=== PATIENT | male | born 1955 | race Caucasian/White ===

== ENCOUNTER 2016-12-01 16:08 | Emergency (ER) | payer MEDICAID ==
[~2016-12-01] VITALS: Ht 177.8 cm; Wt 96.1 kg
[~2016-12-01 16:08] MED LIST: CYCL-259 PO; HYDR-3307 PO; HYDR25TA11 PO
[2016-12-01 16:17] VITALS: BP 114/77
[2016-12-01] MEDS ORDERED: ALBUTEROL/IPRATROPIUM 2.5MG/0.5MG, 3 ML ONE (16:58)
[2016-12-01] MEDS ORDERED: ALBUTEROL/IPRATROPIUM 2.5MG/0.5MG, 3 ML NPPB ONE (17:00)
== END 2016-12-01 17:53 | disposition home or self-care (01) ==
LOC: EDBD 17:43 → ED 17:43
DX: J44.1 Chronic obstructive pulmonary disease with (acute) exacerbation (principal); J45.909 Unspecified asthma, uncomplicated; I10 Essential (primary) hypertension; M06.9 Rheumatoid arthritis, unspecified; G89.29 Other chronic pain; Z87.891 Personal history of nicotine dependence; Z90.49 Acquired absence of other specified parts of digestive tract; Z91.040 Latex allergy status
CPT/HCPCS: 71010; 94640; 99283; J7512; J7620

== ENCOUNTER 2016-12-07 00:03 | Emergency (ER) | payer MEDICAID ==
[~2016-12-07] VITALS: Ht 177.8 cm; Wt 98.2 kg
[2016-12-07] MEDS ORDERED: ALBUTEROL/IPRATROPIUM 2.5MG/0.5MG, 3 ML ONE (01:35)
[2016-12-07] MEDS: ALBUTEROL/IPRATROPIUM 2.5MG/0.5MG, 3 ML NPPB SCH ×2 (01:44→01:46)
[2016-12-07 02:06] VITALS: BP 114/56
== END 2016-12-07 02:09 | disposition home or self-care (01) ==
LOC: ED 02:03
DX: J45.41 Moderate persistent asthma with (acute) exacerbation (principal); M54.9 Dorsalgia, unspecified; G89.29 Other chronic pain; J44.9 Chronic obstructive pulmonary disease, unspecified; M19.90 Unspecified osteoarthritis, unspecified site; I10 Essential (primary) hypertension; M06.9 Rheumatoid arthritis, unspecified; Z87.891 Personal history of nicotine dependence
CPT/HCPCS: 71020; 93005; 94640; 99284; J7512; J7620

== ENCOUNTER 2020-05-11 04:17 | Emergency (ER) | payer MEDICAID ==
[~2020-05-11] VITALS: Ht 177.8 cm; Wt 114.0 kg
[~2020-05-11 04:17] MED LIST changes: +HYDR-3246 PO; -HYDR-3307 PO; +HYDR-826 PO; -HYDR25TA11 PO
--- NOTE | 2020-05-11 04:30 | NUR ---
Patient presents to ER c/o bilat leg/ankle swelling and pain. Patient states his legs have been swollen for the past month and have become worse. Patient is in NAD. REspirations even and unlabored. Edema noted to bilat legs and ankles.
[2020-05-11 05:18] VITALS: BP 124/68
[2020-05-11 05:18] LABS: BASOPHILS # (AUTO) 0.07 x10^3/uL (0-0.1); BASOPHILS % (AUTO) 1 % (0-1); EOSINOPHILS # (AUTO) 0.25 x10^3/uL (0-0.4); EOSINOPHILS % (AUTO) 3 % (1-7); LYMPHOCYTES # (AUTO) 1.44 x10^3/uL (1-3.4); LYMPHOCYTES % (AUTO) 20 % (22-44); MD NO; MEAN CORPUSCULAR HEMOGLOBIN 21.6 pg (27.5-34.5); MEAN CORPUSCULAR HGB CONC 30.6 g/dL (33.2-36.2); MEAN CORPUSCULAR VOLUME 70.7 fL (81-97); MEAN PLATELET VOLUME 8.2 fL (7.4-10.4); MONOCYTES # (AUTO) 0.76 x10^3/uL (0.2-0.8); MONOCYTES % (AUTO) 11 % (2-9); NEUTROPHILS # (AUTO) 4.69 x10^3/uL (1.8-6.8); NEUTROPHILS % (AUTO) 65 % (42-75); PLATELET COUNT 276 x10^3/uL (130-400); RED BLOOD COUNT 4.73 x10^6/uL (4.38-5.82); RED CELL DISTRIBUTION WIDTH 18.1 % (9.4-14.8)
[2020-05-11 05:32] LABS: ALBUMIN 3.5 g/dL (3.4-5.0); ANION GAP 6 mmol/L (5-15); CALCIUM 8.8 mg/dL (8.5-10.1); CHLORIDE 107 mmol/L (98-107); CREATININE 0.98 mg/dL (0.7-1.3)
== END 2020-05-11 06:47 | disposition home or self-care (01) ==
LOC: ED 05:04
DX: I87.2 Venous insufficiency (chronic) (peripheral) (principal); M17.11 Unilateral primary osteoarthritis, right knee; R60.0 Localized edema; J44.9 Chronic obstructive pulmonary disease, unspecified; I10 Essential (primary) hypertension; M19.90 Unspecified osteoarthritis, unspecified site; G89.29 Other chronic pain
CPT/HCPCS: 36415; 80048; 82040; 83880; 85025; 93970; 99284

== ENCOUNTER 2020-10-15 18:37 | Emergency (ER) | payer MEDICAID ==
[~2020-10-15] VITALS: Ht 177.8 cm; Wt 111.8 kg
[~2020-10-15 18:37] MED LIST changes: -HYDR-3246 PO; +HYDR-3248 PO
--- NOTE | 2020-10-15 18:56 | NUR ---
Note jose in [facility] - 10/15/20 at 1857 by LUNA ecosystem ecology professor note: Pt to room from [facility]anti.
--- NOTE | 2020-10-15 19:00 | NUR ---
3 RNs at bedside, 18 gauge IV started in left hand. Pt hooked up to cardiac and oxygen monitor. Pt denies chest pain or cardiac hx.
--- NOTE | 2020-10-15 19:35 | NUR ---
Provider at bedside.
--- NOTE | 2020-10-15 19:36 | NUR ---
Pt denies chest pain but reports today he started feeling heart palpitations and left arm pain. Pt reports they have claustrophobia that started a couple months ago, reports usually the palpitaions and feelings of claustrophobia go away after walking outside or deep breathing but were not going away today.
--- NOTE | 2020-10-15 19:47 | NUR ---
ice chips provided with approval
--- NOTE | 2020-10-15 20:17 | NUR ---
Lab at bedside.
[2020-10-15 20:43] LABS: BASOPHILS % (AUTO) 1 % (0-1); EOSINOPHILS % (AUTO) 6 % (1-7); LYMPHOCYTES % (AUTO) 19 % (22-44); MEAN CORPUSCULAR HEMOGLOBIN 22.2 pg (27.5-34.5); MEAN CORPUSCULAR HGB CONC 31.9 g/dL (33.2-36.2); MEAN PLATELET VOLUME 7.7 fL (7.4-10.4); MONOCYTES % (AUTO) 12 % (2-9); NEUTROPHILS % (AUTO) 63 % (42-75); PLATELET COUNT 256 x10^3/uL (130-400); RED BLOOD COUNT 4.97 x10^6/uL (4.38-5.82); RED CELL DISTRIBUTION WIDTH 16.9 % (9.4-14.8)
--- NOTE | 2020-10-15 20:45 | NUR ---
Pt ambulating to bathroom- using personal cane. Steady with cane.
[2020-10-15 20:48] LABS: MD NO
[2020-10-15 20:52] LABS: ALANINE AMINOTRANSFERASE 30 U/L (12-78); ALBUMIN 3.6 g/dL (3.4-5.0); ANION GAP 7 mmol/L (5-15); CALCIUM 9.3 mg/dL (8.5-10.1); CHLORIDE 107 mmol/L (98-107)
[2020-10-15 20:56] LABS: ALKALINE PHOSPHATASE 92 U/L (45-117); BILIRUBIN,TOTAL 0.4 mg/dL (0.2-1.0); TOTAL PROTEIN 7.3 g/dL (6.4-8.2); TROPONIN I < 0.015 ng/mL (0.000-0.045)
--- NOTE | 2020-10-15 21:32 | NUR ---
Pt to CT
--- NOTE | 2020-10-15 21:47 | NUR ---
Pt unable to tolerate CT- MD reports they will order Ativan.
[2020-10-15] MEDS ORDERED: LORazepam 2 MG/ML, 1ML ONE (21:52)
--- NOTE | 2020-10-15 21:56 | NUR ---
1 mg Ativan given
--- NOTE | 2020-10-15 21:57 | NUR ---
Called CT to inform pt just given Ativan, CT reports they will come get pt now.
--- NOTE | 2020-10-15 21:59 | NUR ---
Pt to CT
[2020-10-15] MEDS ORDERED: OMNIPAQUE 350 MG/ML, 100ML BOTTLE ONE (22:00)
[2020-10-15] MEDS ORDERED: LORazepam 2 MG/ML, 1ML IVPush ONE (22:00)
--- NOTE | 2020-10-15 22:17 | NUR ---
BREAK RN: PT RESTING COMFORTABLY ON GURNEY, ABLE TO DOZE OFF. O2 NOTED TO BE 87% ON ROOM AIR WHILE SLEEPING. PT PLACED ON 2L SUPPLEMENTAL O2 VIA NASAL CANNULA. TOLERATING WELL, O2 AT 96% AT THIS TIME. PT DENIES ANY ADDITIONAL NEEDS AT THIS TIME. CALL LIGHT AND PERSONAL BELONGINGS WITHIN REACH. KIESHA GRANT.
[2020-10-15 23:15] VITALS: BP 119/77
--- NOTE | 2020-10-15 23:23 | NUR ---
IV removed, catheter intact, hemostasis achieved, dressing applied.
== END 2020-10-15 23:35 | disposition home or self-care (01) ==
LOC: ED 22:30
DX: K44.9 Diaphragmatic hernia without obstruction or gangrene (principal); R06.02 Shortness of breath; R07.89 Other chest pain; G47.00 Insomnia, unspecified
CPT/HCPCS: 36415; 71045; 71275; 80053; 84484; 85025; 85379; 93005; 96374; 99285; J2060; Q9967

== ENCOUNTER 2020-10-23 08:43 | Emergency (ER) | payer MEDICAID ==
[~2020-10-23] VITALS: Ht 177.8 cm; Wt 111.1 kg
[~2020-10-23 08:43] MED LIST changes: -CYCL-259 PO; +CYCL10TA2 PO
--- NOTE | 2020-10-23 09:06 | NUR ---
ER MD AT BEDSIDE. PT SITTING AT EOB.
[2020-10-23] MEDS ORDERED: ASPIRIN 81 MG TABLET CHEW ONE (09:23)
[2020-10-23] MEDS ORDERED: LORazepam 2 MG/ML, 1ML ONE (09:24)
[2020-10-23] MEDS ORDERED: SODIUM CHLORIDE FLUSH 10ML SYR IVF ONE (09:30)
[2020-10-23] MEDS ORDERED: LORazepam 2 MG/ML, 1ML IVPush ONE (09:30)
[2020-10-23] MEDS ORDERED: ASPIRIN 81 MG TABLET CHEW PO ONE (09:30)
[2020-10-23 09:35] LABS: BASOPHILS % (AUTO) 1 % (0-1); EOSINOPHILS % (AUTO) 7 % (1-7); LYMPHOCYTES % (AUTO) 20 % (22-44); MEAN CORPUSCULAR HEMOGLOBIN 22.5 pg (27.5-34.5); MEAN CORPUSCULAR HGB CONC 32.3 g/dL (33.2-36.2); MEAN PLATELET VOLUME 8.3 fL (7.4-10.4); MONOCYTES % (AUTO) 10 % (2-9); NEUTROPHILS % (AUTO) 62 % (42-75); PLATELET COUNT 281 x10^3/uL (130-400); RED BLOOD COUNT 4.97 x10^6/uL (4.38-5.82)
[2020-10-23 09:36] LABS: MD NO
[2020-10-23 09:47] LABS: ALANINE AMINOTRANSFERASE 34 U/L (12-78); ALBUMIN 3.6 g/dL (3.4-5.0); ANION GAP 0 mmol/L (5-15); CALCIUM 9.2 mg/dL (8.5-10.1); CHLORIDE 110 mmol/L (98-107); CREATININE 1.25 mg/dL (0.7-1.3)
--- NOTE | 2020-10-23 09:47 | NUR ---
PRECEPTOR RN: PT DESAT TO 80% ON RA. NO RESPIRATORY DISTRESS, RESPIRATIONS EVEN/UNLABORED, BUT SHALLOW. PT EASILY ARROUSABLE TO VOICE. IMPROVED SPO2 WHEN AWAKE. PLACED ON 2L BY NC FOR SUPPORT. PT REPORTS IMPROVEMENT IN PAIN/ANXIETY W MEDICATIONS. PT UPDATED TO POC (RESULTS/RECHECK) AND DEMONSTRATES UNDERSTANDING.
[2020-10-23 09:52] LABS: ALKALINE PHOSPHATASE 88 U/L (45-117); BILIRUBIN,TOTAL 0.3 mg/dL (0.2-1.0); TOTAL PROTEIN 7.2 g/dL (6.4-8.2); TROPONIN I < 0.015 ng/mL (0.000-0.045)
[2020-10-23 10:15] VITALS: BP 112/62
--- NOTE | 2020-10-23 11:02 | NUR ---
DISCHARGE INSTRUCTIONS REVIEWED WITH PT. ALL QUESTIONS ANSWERED AT THIS TIME. PT MAINTAINING OXYGEN SATURATION ABOVE 94% ON ROOM AIR. PT DISCHARGED WITH FRIEND.
== END 2020-10-23 11:06 | disposition home or self-care (01) ==
LOC: ED 09:56
DX: K44.9 Diaphragmatic hernia without obstruction or gangrene (principal); R07.89 Other chest pain; I10 Essential (primary) hypertension; J44.9 Chronic obstructive pulmonary disease, unspecified; M19.90 Unspecified osteoarthritis, unspecified site; Z87.891 Personal history of nicotine dependence
CPT/HCPCS: 36415; 71045; 80053; 83690; 83880; 84484; 85025; 93005; 96374; 99285; J2060

== ENCOUNTER 2020-10-23 18:54 | Emergency (ER) | payer MEDICAID ==
[~2020-10-23] VITALS: Ht 177.8 cm; Wt 110.7 kg
[2020-10-23] MEDS ORDERED: MAALOX/HYOSCYAMINE/LIDOCAINE 45 ML BTL PO ONE (19:30)
[2020-10-23] MEDS ORDERED: PANTOPRAZOLE 20MG TABLET PO ONE (19:30)
[2020-10-23] MEDS ORDERED: PANTOPRAZOLE 40MG TABLET ONE (20:11)
[2020-10-23] MEDS ORDERED: MAALOX/HYOSCYAMINE/LIDOCAINE 45 ML BTL ONE (20:11)
[2020-10-23 21:06] VITALS: BP 134/72
--- NOTE | 2020-10-23 21:07 | NUR ---
Pt dc'd with written and verbal instructions. Pt states he understands. Pt ambulatory out of ED without difficulty. RX gone over with patient and he states he understands. Pt A&O with stable VS
== END 2020-10-23 21:09 | disposition home or self-care (01) ==
LOC: ED 20:58
DX: R07.89 Other chest pain (principal); K44.9 Diaphragmatic hernia without obstruction or gangrene; R60.0 Localized edema; R94.31 Abnormal electrocardiogram [ECG] [EKG]; I10 Essential (primary) hypertension; J44.9 Chronic obstructive pulmonary disease, unspecified
CPT/HCPCS: 93005; 99283

== ENCOUNTER 2020-11-20 10:59 | Emergency (ER) | payer MEDICAID ==
[~2020-11-20] VITALS: Ht 177.8 cm; Wt 104.4 kg
[2020-11-20 11:04] VITALS: BP 119/72
[2020-11-20] MEDS ORDERED: LORazepam 1MG TABLET PO ONE (11:30)
[2020-11-20] MEDS ORDERED: LORazepam 1MG TABLET ONE (11:31)
--- NOTE | 2020-11-20 11:41 | NUR ---
PT APPEARS ANXIOUS IN RM, SITTING ON EDGE OF BED ROCKING BACK AND FORTH. PT TO ALL MOTNIORS. PT MEDICATED PER NOV. VSS, NO OTHER NEEDS
== END 2020-11-20 12:24 | disposition home or self-care (01) ==
LOC: ED 12:00
DX: K44.9 Diaphragmatic hernia without obstruction or gangrene (principal); R06.00 Dyspnea, unspecified; F41.1 Generalized anxiety disorder; R94.31 Abnormal electrocardiogram [ECG] [EKG]; J44.9 Chronic obstructive pulmonary disease, unspecified; I10 Essential (primary) hypertension; M06.9 Rheumatoid arthritis, unspecified
CPT/HCPCS: 93005; 99283

== ENCOUNTER 2020-11-20 15:01 | Emergency (ER) | payer MEDICAID ==
[~2020-11-20] VITALS: Ht 177.8 cm; Wt 140.0 kg
[2020-11-20 15:06] VITALS: BP 122/68
--- NOTE | 2020-11-20 15:11 | NUR ---
DR ALAMO TO EVAL PT IN TRIAGE
== END 2020-11-20 15:24 | disposition home or self-care (01) ==
LOC: ED 15:15
DX: F41.1 Generalized anxiety disorder (principal)
CPT/HCPCS: 99281